=== PATIENT | male | born 1960 | race Caucasian/White ===

== ENCOUNTER 2016-06-03 09:21 | Emergency (ER) | payer OTHER ==
[2016-06-03 09:59] VITALS: BP 128/88
--- NOTE | 2016-06-03 10:05 | UC ---
Skin Complaint HPI - HPI Summary HPI Summary: tick on right chest wall for less than 12 hours---was able to remove most of it but is concerned about the small amount remaining - History of Current Complaint Hx Obtained From: Patient Onset/Duration: Sudden Onset, Lasting Hours Skin Exposure Onset/Duration: Hours Ago - tick likely attached less than 12 hours Onset Severity: Mild Current Severity: Mild Pain Intensity: 0 Location: Discrete - right anterior lateral chest wall Character: Redness Aggravating: Nothing Alleviating: Nothing Associated Signs & Symptoms: Positive: Negative Related History: Insect Bite/Sting <Jody Ornelas - Last Filed: 06/03/16 10:17> <Kade Oscar - Last Filed: 06/03/16 14:27> - History of Current Complaint Chief Complaint: [facility] Time Seen by Provider: 06/03/16 09:58 Stated Complaint: TICK BITE - Allergy/Home Medications Allergies/Adverse Reactions: Allergies Allergy/AdvReac Type Severity Reaction Status Date / Time No Known Allergies Allergy Verified 06/03/16 09:51 Home Medications: Home Medications Fluticasone NASAL SPRAY 50MCG* [Flonase NASAL SPRAY 50MCG*] 2 spray BOTH NARES DAILY 06/03/16 [History Confirmed 06/03/16] Losartan TAB* [Cozaar TAB*] 25 mg PO DAILY 06/03/16 [History Confirmed 06/03/16] Review of Systems Constitutional: Negative Skin: Other - small bit of mouth parts remaining in a tick bite on right anterior chest wall Eyes: Negative ENT: Negative Respiratory: Negative Cardiovascular: Negative Gastrointestinal: Negative Genitourinary: Negative Motor: Negative Neurovascular: Negative Musculoskeletal: Negative Neurological: Negative Psychological: Negative All Other Systems Reviewed And Are Negative: Yes <Jody Ornelas - Last Filed: 06/03/16 10:17> PMH/Surg Hx/FS Hx/Imm Hx Previously Healthy: No Cardiovascular History Of: Reports: Hypertension Respiratory History Of: Reports: Asthma - Surgical History Surgical History: Yes Surgery Procedure, Year, and Place: Left Mastoid Surgery as a child. Prostate Surgery to cauterize a blood vessel. LEFT HAND SURGERY - Family History Known Family History: Positive: None Family History: no reported cardiovascular issues in family lineage - Social History Occupation: Employed Full-time Lives: With Family Alcohol Use: Occasionally Alcohol Amount: beer or burbon/coke Substance Use Type: None Smoking Status (MU): Former Smoker Type: Smokeless Tobacco Amount Used/How Often: 1 can every 2 days When Did the Patient Quit Smoking/Using Tobacco: 20 YEARS AOGO <Jody Ornelas - Last Filed: 06/03/16 10:17> Physical Exam Triage Information Reviewed: Yes Appearance: Well-Appearing, No Pain Distress, Well-Nourished Vital Signs: Initial Vital Signs Temp 98 F 06/03/16 09:52 Pulse 86 06/03/16 09:52 Resp 16 06/03/16 09:52 BP 128/88 06/03/16 09:52 Pulse Ox 99 06/03/16 09:52 Vital Signs Reviewed: Yes Eye Exam: Normal Eyes: Positive: Conjunctiva Clear ENT Exam: Normal ENT: Positive: Normal ENT inspection, Hearing grossly normal. Negative: Nasal congestion, Nasal drainage, Trismus, Muffled/hoarse voice Dental Exam: Normal Neck exam: Normal Neck: Positive: Supple, Nontender Respiratory Exam: Normal Respiratory: Positive: Chest non-tender, No respiratory distress, No accessory muscle use Cardiovascular Exam: Normal Cardiovascular: Positive: RRR, Pulses Normal, Brisk Capillary Refill Musculoskeletal Exam: Normal Musculoskeletal: Positive: Strength Intact, ROM Intact, No Edema Neurological Exam: Normal Neurological: Positive: Alert, Muscle Tone Normal, Fatigued Psychological Exam: Normal Skin Exam: Normal <Jody Ornelas - Last Filed: 06/03/16 10:17> Vital Signs: Initial Vital Signs Temp 98 F 06/03/16 09:52 Pulse 86 06/03/16 09:52 Resp 06/03/16 09:52 BP 128/88 06/03/16 09:52 Pulse Ox 99 06/03/16 09:52 <Kade Oscar - Last Filed: 06/03/16 14:27> Re-Evaluation - Re-Evaluation First Eval Change: Improved - small amount of mouth part removed with splinter tweezers with easy-pt tolerated well <Jody Ornelas - Last Filed: 06/03/16 10:17> Course/Dx - Course Course Of Treatment: soap and water wash education regarding lyme and observe for lyme signs and symptoms, diastlic pressure slightly elevate re-check with pcp DASH eating plan may be helpful - Differential Diagnoses - Skin Complaint Differential Diagnoses: Local Allergic Reaction, Scabies, Systemic Illness - Diagnoses Provider Diagnoses: Tick removal, lyme education boarderline hypertension with current diagnosis of high blood pressure <Jody Ornelas - Last Filed: 06/03/16 10:17> Discharge <Jody Ornelas - Last Filed: 06/03/16 10:17> <Kade Oscar - Last Filed: 06/03/16 14:27> - Discharge Plan Condition: Stable Disposition: HOME Patient Education Materials: Tick Bite (ED), DASH Eating Plan (ED) Referrals: Jn Sanabria MD [Primary Care Provider] - 2 Weeks
== END 2016-06-03 10:27 | disposition home or self-care (01) ==
LOC: UCCORT 09:21
DX: S20.361A Insect bite (nonvenomous) of right front wall of thorax, initial encounter (principal); W57.XXXA Bitten or stung by nonvenomous insect and other nonvenomous arthropods, initial encounter; Y93.9 Activity, unspecified; Y92.9 Unspecified place or not applicable; R03.0 Elevated blood-pressure reading, without diagnosis of hypertension; J45.909 Unspecified asthma, uncomplicated; Z87.891 Personal history of nicotine dependence
CPT/HCPCS: 99211; G0463